=== PATIENT | female | born 1975 | race Caucasian/White ===

== ENCOUNTER 2017-12-30 23:11 | Emergency (ER) | payer OTHER ==
[~2017-12-30] VITALS: Ht 152.4 cm; Wt 76.0 kg
[2017-12-30 23:14] VITALS: Ht 152.4 cm; Wt 76.0 kg
[2017-12-30] MEDS ORDERED: KETOROLAC TROMETHAMINE 30 MG/ML VIAL IV STA (23:45)
[2017-12-30] MEDS ORDERED: ALUMINUM/MAGNESIUM SUSP 30 ML UDC PO STA (23:45)
[2017-12-30] MEDS ORDERED: ACETAMINOPHEN 500 MG TAB PO STA (23:45)
--- NOTE | 2017-12-30 23:49 | EMERGENCY ROOM VISIT NOTE ---
History Report prepared by Sage: Davi Blanton Under the Supervision of: Dr. Trevor Narvaez M.D. First contact with patient: 23:22 Chief Complaint: CARDIAC ASSESSMENT Stated Complaint: HEADACHE,CHEST PAIN,BACK PAIN Nursing Triage Summary: Patient ambulatory to triage with an upright and steady gait, states "I had chest pains a little while ago, maybe around 2200. The pain in the left side of my chest was a spasm like pain and lasted about 10 minutes. This afternoon, I had a really bad pain in my back; like a squeezing pain in the back of my ribs. It was weird. My right leg has been hurting; like a dull but intense at times. I have a lot of weird things going on with me. I have had a headache all day today too." History of Present Illness The patient is a 42 year old white female with a past medical history of asthma who presents to the ED with a cc of resolved left sided chest pain beginning at 2200. She rates her pain as an 8/10 in severity. She describes her pain as a sharp sensation. Positive smoking, abdominal tenderness, back pain, diaphoresis , nausea, headache. Negative radiation of pain, cough, recent trauma, similar previous symptoms, leg swelling, a history of blood clots, prolonged travel. The patient states that earlier today, the back of her ribs were experiencing pain. She reports that around 2200 she started to developed sharp chest pain that lasted for 10 minutes. She reports that her mother had multiple heart attacks since she was 55. Source of History: patient Onset: 2200 Position: chest Symptom Intensity: 8/10 Quality: sharp Timing: resolved Associated Symptoms: + headache, + diaphoresis, + nausea, + abdominal pain, + back pain, No cough Review of Systems See HPI for pertinent positives and negatives. A total of ten systems were reviewed and were otherwise negative. Past Medical & Surgical Medical Problems: (1) Asthma Surgical Problems: (1) History of Family History Cancer Diabetes mellitus FHx: gallbladder disease Heart disease Hypertension Social History Smoking Status: Current Every Day Smoker Drug Use: none Marital Status: Housing Status: lives with family Occupation Status: employed Current/Historical Medications Scheduled Cholecalciferol (Vitamin D3), 1 TAB PO DAILY Scheduled PRN Cetirizine (Zyrtec), 10 MG PO DAILY PRN for Allergic Reaction Allergies Uncoded Allergies: CONTACT (Allergy, Unknown, asthma, 12/31/17) contact cold med FLONASE (Allergy, Unknown, itching / burning / hands and feet, 12/31/17) Physical Exam Vital Signs Date Time Temp Pulse Resp B/P (MAP) Pulse Ox O2 Delivery O2 Flow Rate FiO2 12/31/17 01:32 36.8 74 18 141/84 100 12/31/17 01:04 74 18 141/84 100 Room Air 12/30/17 23:30 69 12/30/17 23:18 98 Room Air 12/30/17 23:14 36.8 74 20 149/84 98 Room Air Physical Exam GENERAL: Awake, alert, well-appearing, NAD HENT: Normocephalic, atraumatic. EYES: Normal conjunctiva. Sclera non-icteric. NECK: Supple. No nuchal rigidity. FROM. RESPIRATORY: CTAB, no rhonchi, wheezing, crackles CARDIAC: RRR, no MRG ABDOMEN: Soft, NTND, BS+ MSK: No chest wall TTP, no LE edema NEURO: GCS 15, CN 2-12 intact, moves all 4s on command SKIN: No rash or jaundice noted. Medical Decision & Procedures ER Provider Diagnostic Interpretation: X-ray: Per my interpretation, review. CHEST X-RAY: Trachea midline. Bony elements intact. Costophrenic angles well demarcated. No free air under diaphragm. No obvious consolidation, pleural effusion, or pneumothorax. Laboratory Results 12/30/17 23:30 Red Blood Count 4.29, Mean Corpuscular Volume 89.3, Mean Corpuscular Hemoglobin 31.0, Mean Corpuscular Hemoglobin Concent 34.7, Mean Platelet Volume 10.9, Neutrophils (%) (Auto) 46.1, Lymphocytes (%) (Auto) 42.7, Monocytes (%) (Auto) 8.4, Eosinophils (%) (Auto) 1.6, Basophils (%) (Auto) 0.9, Neutrophils # (Auto) 5.32, Lymphocytes # (Auto) 4.91, Monocytes # (Auto) 0.97, Eosinophils # (Auto) 0.18, Basophils # (Auto) 0.10 12/30/17 23:30 Test 12/30/17 23:30 White Blood Count 11.51 K/uL (4.8-10.8) Red Blood Count 4.29 M/uL (4.2-5.4) Hemoglobin 13.3 g/dL (12.0-16.0) Hematocrit 38.3 % (37-47) Mean Corpuscular Volume 89.3 fL (80-100) Mean Corpuscular Hemoglobin 31.0 pg (25-34) Mean Corpuscular Hemoglobin Concent 34.7 g/dl (32-36) Platelet Count 298 K/uL (130-400) Mean Platelet Volume 10.9 fL (7.4-10.4) Neutrophils (%) (Auto) 46.1 % Lymphocytes (%) (Auto) 42.7 % Monocytes (%) (Auto) 8.4 % Eosinophils (%) (Auto) 1.6 % Basophils (%) (Auto) 0.9 % Neutrophils # (Auto) 5.32 K/uL (1.4-6.5) Lymphocytes # (Auto) 4.91 K/uL (1.2-3.4) Monocytes # (Auto) 0.97 K/uL (0.11-0.59) Eosinophils # (Auto) 0.18 K/uL (0-0.5) Basophils # (Auto) 0.10 K/uL (0-0.2) RDW Standard Deviation 42.5 fL (36.4-46.3) RDW Coefficient of Variation 13.1 % (11.5-14.5) Immature Granulocyte % (Auto) 0.3 % Immature Granulocyte # (Auto) 0.03 K/uL (0.00-0.02) Prothrombin Time 9.6 SECONDS (9.0-12.0) Prothromb Time International Ratio 0.9 (0.9-1.1) Activated Partial Thromboplast Time 26.0 SECONDS (21.0-31.0) Partial Thromboplastin Ratio 1.0 Anion Gap 6.0 mmol/L (3-11) Est Creatinine Clear Calc Drug Dose 84.3 ml/min Estimated GFR () 106.1 Estimated GFR (Non- 91.6 BUN/Creatinine Ratio 8.7 (10-20) Calcium Level 8.5 mg/dl (8.5-10.1) Total Bilirubin 0.4 mg/dl (0.2-1) Direct Bilirubin mg/dl (0-0.2) Aspartate Amino Transf (AST/SGOT) 15 U/L (15-37) Alanine Aminotransferase (ALT/SGPT) 19 U/L (12-78) Alkaline Phosphatase 96 U/L (45-117) Troponin I < 0.015 ng/ml (0-0.045) Pro-B-Type Natriuretic Peptide 57 pg/ml (0-450) Total Protein 7.0 gm/dl (6.4-8.2) Albumin 3.6 gm/dl (3.4-5.0) Lipase 86 U/L (73-393) Chemistry Specimen Hemolysis Laboratory results reviewed by me Medications Administered Medications (Trade) Dose Ordered Sig/Eleanor Route Start Time Stop Time Status Last Admin Dose Admin Al Hydroxide/Mg Hydroxide (Maalox Susp) 30 ml NOW STAT PO 12/30/17 23:45 12/30/17 23:49 DC 12/31/17 00:02 30 ML Acetaminophen (Tylenol Tab) 1,000 mg NOW STAT PO 12/30/17 23:45 12/30/17 23:49 DC 12/31/17 00:01 1,000 MG Ketorolac Tromethamine (Toradol Inj) 30 mg NOW STAT IV 12/30/17 23:45 12/30/17 23:49 DC 12/31/17 00:02 30 MG ECG Indication: chest pain Rate (beats per minute): 67 Rhythm: normal sinus Findings: other (Normal axis/intervals. T Wave flattening in Lead 3. No other STS changes or TWI.) Change: Patient's electrocardiogram interpreted by me. ED Course 2337: The patient was evaluated in room A10. A complete history and physical exam was performed. 0106: I reevaluated the patient. Discussed results and discharge instructions: She verbalized understanding and agreement. The patient is ready for discharge. Medical Decision Triage Nursing notes reviewed. The patient is a 42 year old white female with a past medical history of asthma who presents to the ED with a cc of resolved left sided chest pain beginning 0. The patient's presentation and history were concerning for etiologies such as cardiac ischemia, aortic dissection, pulmonary embolism, pneumonia, pneumothorax , musculoskeletal, infections, pericarditis, myocarditis, esophageal rupture, gastrointestinal, as well as others were entertained. Patient was seen and evaluated the bedside. Patient did complain of some mild left-sided chest pain. Patient described it as sharp. It was nonradiating. Patient states it was not exertional in nature. Patient did complain of feeling a little warm and did have some nausea. Patient's mother does have a prior history of what she described as many heart attacks in her 50s. Patient is a smoker. Patient has no known medical problems. She does not take any medications. Patient denies any recent car or plane travel. No history of taking medicines to avoid . On exam the patient is fairly well- appearing. Patient is a fairly normal EKG and negative troponin. The patient has a heart score less than 4 less less likely ACS. Given the patient's family history I did discuss that it was imperative the patient quit smoking. Patient was also counseled on diet and exercise. Patient was told to follow-up with her PCP to discuss further evaluation and treatment of potential familial heart disease which may include beginning to take a baby aspirin. Patient is PE RC of 0 less likely PE. Chest x-ray clear less likely infectious. Given the patient's smoking history as well as sharp pains I believe this may be related to a bronchitis. Patient was told she may continue Motrin and Tylenol. If there is some sort of musculoskeletal element she could try some moist heat as well as warm showers. Patient was also told that this discomfort would likely improve if she stop smoking. She states that she was given a prescription for your pre-butyrin but has not started taking yet. Patient was given strict follow -up, discharge, and return precautions. All questions were answered. Patient was deemed suitable for outpatient follow-up at this time. Patient agreed with the plan of care and was safely discharged home. The chart was completed utilizing [employer] Speech voice recognition software. Grammatical errors, random word insertions, pronoun errors, and incomplete sentences are an occasional consequence of this system due to software limitations, ambient noise, and hardware issues. Any formal questions or concerns about the content, text, or information contained within the body of this dictation should be directly addressed to the physician for clarification. Medication Reconcilliation Current Medication List: was personally reviewed by me Blood Pressure Screening Patient's blood pressure: Elevated blood pressure Blood pressure disposition: Elevated BP felt to be situational Impression Primary Impression: Chest pain Additional Impressions: Bronchitis Encounter for smoking cessation counseling Scribe Attestation The scribe's documentation has been prepared under my direction and personally reviewed by me in its entirety. I confirm that the note above accurately reflects all work, treatment, procedures, and medical decision making performed by me. Departure Information Dispostion Home / Self-Care Referrals Autumn Zimmerman D.O. (PCP) Patient Instructions Bronchitis Acute, ED Smoking Cessation, My [facility] Additional Instructions Please return to the emergency department if you have worsening or recurrent symptoms not amenable to at-home treatment. Please call for a follow-up appointment with her primary care physician. Please take your medications as prescribed. If you have other concerns and/or complaints please feel free to also call your primary care physician's office or return the ED for further evaluation, management, and treatment. Consider smoking cessation. You may take 600 mg Ibuprofen every 6 hours as needed for pain with food for no more than 2 consecutive days. You may take tylenol 1000 mg every 6 hours as needed for pain. You may take motrin and tylenol separately or at the same time. Take your medications as prescribed. You have been examined and treated today on an emergency basis only. This is not a substitute for, or an effort to provide, complete comprehensive medical care. It is impossible to recognize and treat all injuries or illnesses in a single emergency department visit. It is therefore important that you follow up closely with [facility], your PCP, and/or your specialist(s). Call as soon as possible for an appointment. Thank you for your time and consideration. I look forward to speaking with you again soon. Please don't hesitate to call us if you have any questions. Problem Qualifiers Primary Impression: Chest pain Chest pain type: unspecified Qualified Codes: R07.9 - Chest pain, unspecified
[2017-12-31 00:01] LABS: BASO % 0.9 %; EOS % 1.6 %; EOS ABS # 0.18 K/uL (0-0.5); HEMATOCRIT 38.3 % (37-47); HEMOGLOBIN 13.3 g/dL (12.0-16.0); IG# 0.03 K/uL (0.00-0.02); LYMPH % 42.7 %; LYMPH ABS # 4.91 K/uL (1.2-3.4); MEAN CELL VOLUME 89.3 fL (80-100); MEAN CORPUSCULAR HGB CONC 34.7 g/dl (32-36); MEAN PLATELET VOLUME 10.9 fL (7.4-10.4); MONO % 8.4 %; MONO ABS # 0.97 K/uL (0.11-0.59); NEUT % 46.1 %; NEUT ABS # 5.32 K/uL (1.4-6.5); PLATELET COUNT 298 K/uL (130-400); RED CELL DISTRIBUTION WIDTH CV 13.1 % (11.5-14.5); RED CELL DISTRIBUTION WIDTH SD 42.5 fL (36.4-46.3); WHITE BLOOD COUNT 11.51 K/uL (4.8-10.8)
[2017-12-31] MEDS ORDERED: DIPH25TA61 PO (00:01)
[2017-12-31] MEDS ORDERED: CHOL1000 PO (00:01)
[2017-12-31] MEDS ORDERED: CETI10TA84 PO (00:02)
[2017-12-31 00:14] LABS: INR 0.9 (0.9-1.1)
[2017-12-31 00:19] LABS: ALBUMIN 3.6 gm/dl (3.4-5.0); ALKALINE PHOSPHATASE 96 U/L (45-117); ALT/SGPT 19 U/L (12-78); BLOOD UREA NITROGEN 7 mg/dl (7-18); CALCIUM 8.5 mg/dl (8.5-10.1); CARBON DIOXIDE 27 mmol/L (21-32); GLUCOSE 78 mg/dl (70-99); LIPASE 86 U/L (73-393)
[2017-12-31 00:22] LABS: POTASSIUM 3.6 mmol/L (3.5-5.1); SODIUM 138 mmol/L (136-145)
[2017-12-31 00:41] LABS: AST/SGOT 15 U/L (15-37)
[2017-12-31 01:32] VITALS: BP 141/84; PULSE 74; TEMP 36.8; O2SAT 100
--- NOTE | 2017-12-31 06:11 | DIAGNOSTIC IMAGING REPORT ---
CHEST ONE VIEW PORTABLE CLINICAL HISTORY: 42 years-old Female presenting with CHEST PAIN, headache, back pain. TECHNIQUE: Portable upright AP view of the chest was obtained. COMPARISON: None. FINDINGS: Cardiomediastinal silhouette normal. Lungs and pleural spaces clear. Osseous structures normal. Upper abdomen normal. IMPRESSION: 1. No acute cardiopulmonary disease. Electronically signed by: Clay Wells M.D. 12/31/2017 6:09 AM Dictated Date/Time: 12/31/2017 6:09 AM
== END 2017-12-31 01:30 | disposition home or self-care (01) ==
LOC: C.EDB 23:12 → C.EDA 12-31 01:30
DX: R07.9 Chest pain, unspecified (principal); J40 Bronchitis, not specified as acute or chronic; Z71.6 Tobacco abuse counseling; J45.909 Unspecified asthma, uncomplicated; F17.200 Nicotine dependence, unspecified, uncomplicated; R10.9 Unspecified abdominal pain; M54.9 Dorsalgia, unspecified; R11.0 Nausea; R51 Headache; Z83.3 Family history of diabetes mellitus; Z82.49 Family history of ischemic heart disease and other diseases of the circulatory system